=== PATIENT | female | born 1975 | race Caucasian/White ===

== ENCOUNTER 2017-09-20 14:29 | Emergency (ER) | payer SELFPAY | END 2017-09-20 16:23 | disposition home or self-care (01) | LOC: ERS 14:29 | DX: J11.1 Influenza due to unidentified influenza virus with other respiratory manifestations (principal); F17.210 Nicotine dependence, cigarettes, uncomplicated; Z71.6 Tobacco abuse counseling | CPT/HCPCS: 99406 ==

== ENCOUNTER 2020-02-23 14:37 | Emergency (ER) | END 2020-02-23 16:46 | disposition left against medical advice (07) | LOC: ERS 14:37 | DX: Z53.21 Procedure and treatment not carried out due to patient leaving prior to being seen by health care provider (principal) ==

== ENCOUNTER 2022-03-31 11:15 | Emergency (ER) | payer SELFPAY | END 2022-03-31 12:15 | disposition home or self-care (01) | LOC: ERS 11:15 | DX: Z02.79 Encounter for issue of other medical certificate (principal) | CPT/HCPCS: 99281 ==

== ENCOUNTER 2023-01-08 19:02 | Emergency (ER) | payer SELFPAY ==
[2023-01-08] MEDS ORDERED: Metoclopramide HCl 10 MG/2 ML VIAL ONE (21:05)
[2023-01-08] MEDS ORDERED: Ketorolac Tromethamine 30 MG/ML VIAL ONE (21:05)
[2023-01-08] MEDS ORDERED: diphenhydrAMINE 50 MG/ML VIAL ONE (21:05)
== END 2023-01-08 22:27 | disposition home or self-care (01) ==
LOC: ERS 19:02
DX: G43.909 Migraine, unspecified, not intractable, without status migrainosus (principal); F17.210 Nicotine dependence, cigarettes, uncomplicated
CPT/HCPCS: 96365; 96375; J1200; J1885; J2765